=== PATIENT | female | born 1935 | race Caucasian/White ===

== ENCOUNTER 2018-03-22 11:15 | Observation (INO) ==
--- NOTE | 2018-03-22 10:00 | Anesthesia Evaluation PreOp ---
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 with most recent EF 55%), HTN, Hyperlipidemia, Pacemaker/ICD (interogated today) Pulmonary History: Former smoker CLIENT APPLICATION SUPPORT ENGINEER History: Other (Anxiety, Panic disorder) Anesthesia History: Past Anesthesia ( cholecystectomy, hip replacement, hysterectomy, knee replacement, pacemaker/AICD) : No Alcohol Use: rarely Drug use: none Medications and Allergies Acetaminophen [Tylenol] 325 mg PO Q6HR PRN 07/20/15 [History] Cetirizine HCl [Zyrtec] 10 mg PO PRN PRN 07/20/15 [History] Esomeprazole Magnesium [Nexium] 40 mg PO PRN PRN 07/20/15 [History] Estradiol [Estrace] 1 mg PO DAILY 07/20/15 [History] Furosemide [Lasix] 20 mg PO DAILY 07/20/15 [History] Losartan [Cozaar] 25 mg PO DAILY 07/20/15 [History] Metoprolol [Lopressor] 100 mg PO TID 07/20/15 [History] Nitroglycerin [Nitrostat] 0.4 mg SL PRN PRN 07/20/15 [History] Potassium Chloride 20 meq PO QID 07/20/15 [History] Ropinirole [Requip] 0.25 mg PO HS 07/20/15 [History] Sertraline HCl [Zoloft] 100 mg PO DAILY 07/20/15 [History] Warfarin [Coumadin] 5 mg PO 1800 #14 tablet 07/22/15 [Rx] 3 Allergy/AdvReac Type Severity Reaction Status Date / Time Procainamide Allergy See Verified 08/17/17 15:06 Comments Penicillins [PCN] AdvReac See Verified 08/17/17 15:06 Comments - Meds/Allergy Pre-op Review Medications Reviewed: Yes Allergies Reviewed: Yes Beta Blockers on Current Med List: Yes Anesthesia Results - Labs Laboratory Tests 01/03/18 02/12/18 02/28/18 05:17 05:52 14:41 WBC 4.8 Hgb 12.1 Hct 31.0 L Plt Count 122 L INR Sodium 139 Potassium Chloride 103 Carbon Dioxide 30 H BUN 21 Creatinine 1.28 H 02/28/18 03/19/18 14:41 06:20 WBC Hgb Hct Plt Count INR 1.2 Sodium Potassium 4.8 Chloride Carbon Dioxide BUN Creatinine - Imaging EKG: report reviewed (ELECTRONIC VENTRICULAR PACEMAKER ABNORMAL RHYTHM ECG) Anesthesia Assess/Plan ASA Score: 3 Modified Lex Scale for Level of Consciousness: Cooperative, oriented, and tranquil Anesthetic Plan: General Autologous Blood: Yes Monitoring Plan: Standard Monitors Recovery Plan: PACU
[~2018-03-22 11:15] MED LIST: ceFAZolin 1,000 MG, Sodium Chloride IRRigation 1,000 ML IR ONE
[2018-03-22] MEDS ORDERED: Clindamycin 900 MG/50 ML 900 MG/50 ML IV.SOLN IVPB ONE (11:58)
[2018-03-22] MEDS ORDERED: Lidocaine -MPF 2% 2 ML VIAL ONE (11:59)
[2018-03-22] MEDS ORDERED: *HR* Succinylcholine 200 MG/10 ML VIAL IVP ONE (11:59)
[2018-03-22] MEDS ORDERED: Ondansetron 4 MG/2 ML VIAL ONE (11:59)
[2018-03-22] MEDS ORDERED: *HR* FentaNYL (PF) 100 MCG/2 ML VIAL ONE (12:00)
[2018-03-22] MEDS ORDERED: Ringers Solution, Lactated 1,000 ML IVC SCH (12:00)
[2018-03-22] MEDS ORDERED: *HR* Propofol 200 MG/20 ML VIAL IVP ONE (12:00)
--- NOTE | 2018-03-22 12:26 | History & Physical Report ---
Date of Encounter: 03/22/18 Time of Encounter: 12:20 24 Hour HP Update - Instructions Instructions: If the History and Physical is less than 30 days old and was completed prior to A.M. admission and or procedure and has NOT been updated on calendar day of procedure please complete this update prior to performing procedure. - Update Patient reports changes in Medical Condition: No Changes in examination, assessment, or condition: No Changes in Medication: No Preop tests/diagnostics Reviewed: Yes Surgery Remains Indicated: Yes Consent for Planned Operative Procedure(s) Verified: Yes - Pre-Operative Checklist Preoperative Checklist Indicated: Yes Prophylactic Antibiotic Ordered: Yes Home Medications Include Beta Amari: Yes Beta Amari Taken Today (Day of Surgery): Yes Beta Amari Taken Yesterday (Day Prior to Surgery): Yes Is VTE Prophylaxis Indicated?: Yes
[2018-03-22] MEDS ORDERED: Dexamethasone 4 MG/ML VIAL ONE (13:12)
[2018-03-22] MEDS ORDERED: *HR* FentaNYL (PF) 100 MCG/2 ML VIAL IVP PRN (13:24)
[2018-03-22] MEDS ORDERED: *HR* Promethazine 25 MG/ML VIAL IVP PRN (13:24)
[2018-03-22] MEDS ORDERED: *HR* Rocuronium Bromide 50 MG/5 ML VIAL ONE (13:35)
[2018-03-22] MEDS ORDERED: Neostigmine Methylsulfate 3 MG/3 ML SYRINGE ONE (13:40)
[2018-03-22] MEDS ORDERED: *HR* Nalbuphine 20 MG/ML AMPUL ONE (13:50)
--- NOTE | 2018-03-22 14:04 | Operative Note ---
Date of procedure: 03/22/18 Pre-op diagnosis: Zenker's diverticulum Post-op diagnosis: same Procedure: #1 Zenker's diverticulectomy. #2 cricopharyngotomy Anesthesia: SHANIA Surgeon: Tone Andre Was there an mechanic assistant present: Yes Manager Budget: Nolvia Cortes Estimated blood loss (cc): 5 Specimen: Zenker's diverticulum Condition: stable Disposition: PACU Procedure in Detail: After informed consent the patients taking major operative suite placed in supine position given adequate general endotracheal anesthesia. The left neck is prepped and draped in sterile fashion utilizing ChloraPrep standard draping techniques. Timeout was taken. The patient is identified. I made a low anterior sternocleidomastoid incision in the left neck. I reflected the sternocleidomastoid posteriorly. The carotid and jugular vein were reflected posterior laterally. I isolated the omohyoid. The omohyoid was divided. I followed the carotid sheath down to the level of the anterior cervical fascia. I swept the larynx trachea and esophagus medially down to the anterior cervical fascia. The recurrent laryngeal nerve bundle was identified and protected. The nasogastric tube was passed directly into the esophagus under direct vision and palpation. I dissected the Zenker's diverticulum free. Holding this at right angles to the hypopharynx I identified the cricopharyngeus. I passed a right angle behind the cricopharyngeus and performed cricopharyngeal ottoman. This gave a good funnel shaped mucosa indicating an adequate cricopharyngeal ottoman. The laparoscopic vascular stapler was then used to amputate the Zenker 's diverticulum. The staple line was oriented transversely. His gave an excellent technical result with complete mucosal closure. The neck was irrigated with copious amounts of antibiotic containing solution and closed in multiple layers using interrupted 2-0 Vicryl and skin yaw. She tolerated the procedure well.
--- NOTE | 2018-03-22 14:43 | Anesthesia Evaluation Post Op ---
Date of Encounter: 03/22/18 Time of Encounter: 14:40 - Vital Signs Vital Signs: Vital Signs/O2 Sat/Glucose, Most Current Temp Pulse Resp BP Pulse Ox 03/22/18 14:39 98.3 F 70 14 150/81 99 03/22/18 14:29 98.3 F 70 12 140/85 98 03/22/18 14:19 70 14 152/90 100 03/22/18 14:09 69 14 139/84 98 03/22/18 13:59 98.1 F 72 12 141/93 100 03/22/18 11:37 98.0 F 80 18 104/67 98 - Lungs Lungs: Clear Ascult./Percussion - Airway Airway: Non-obstructed - Cardiovascular Regular Rate - Mental Status Mental Status: Alert & Oriented, Answers Appropriately - Pain Pain Scale: 0 - Nausea Vomiting Nausea Vomiting: Not Present - Hydration Hydration: Ice chips - Discharge PostOp Status: Transfer Patient to floor
[2018-03-22] MEDS ORDERED: OXYCODONE Oral CONC 10 MG/0.5 ML ORAL.SYG SL PRN (15:31)
[2018-03-22] MEDS ORDERED: Nitroglycerin 0.4 MG TAB.SUBL SL PRN (15:31)
[2018-03-22] MEDS ORDERED: Ondansetron 4 MG/2 ML VIAL IVP PRN (15:31)
[2018-03-22] MEDS ORDERED: *HR* OxyCODONE/APAP 5/325 TABLET PO PRN (15:31)
[2018-03-22] MEDS ORDERED: *HR* Metoprolol 5 MG/5 ML VIAL IVP PRN (15:31)
[2018-03-22] MEDS ORDERED: 0.9 % Sodium Chloride 1,000 ML IVC SCH (15:31)
[2018-03-22] MEDS ORDERED: Clindamycin 900 MG/50 ML 900 MG/50 ML IV.SOLN IVPB SCH (16:00)
[2018-03-22] MEDS: Clindamycin 900 MG/50 ML 900 MG/50 ML IV.SOLN IVPB SCH (20:24)
[2018-03-23] MEDS: Clindamycin 900 MG/50 ML 900 MG/50 ML IV.SOLN IVPB SCH (05:33)
[2018-03-23 06:47] VITALS: BP 99/65
--- NOTE | 2018-03-23 06:56 | General Surgery Progress Note ---
Date of Encounter: 03/23/18 Time of Encounter: 06:20 Subjective Narrative: Patient admits to sore throat but denies any significant pain. She denies any nausea or vomiting. Denies any fever overnight. Denies any chest pain or shortness of breath. Denies any bowel movement but admits to passing gas. Denies any abdominal pain. Objective Vital Signs - Last 8 Hours Temp Pulse Resp BP Pulse Ox 03/23/18 06:45 97.6 F 94 14 99/65 94 03/23/18 04:31 97.9 F 82 15 91/59 93 03/23/18 02:19 98.4 F 78 16 81/48 94 03/23/18 00:13 96/64 03/22/18 23:33 98.1 F 82 15 86/56 95 Intake and Output 03/22/18 03/22/18 03/23/18 15:59 23:59 07:59 Intake Total 1150 / 1150 320 / 320 Output Total 5 / 5 0 / 0 400 / 400 Balance -5 / -5 1150 / 1150 -80 / -80 Intake: IV Fluids 50 / 50 Cleocin Premix 900 MG/50 ML 900 50 / 50 mg In 50 ml @ 50 mls/hr IVPB Q8H [facility] Rx#:[id number] Oral 1100 / 1100 320 / 320 Output: Urine 0 / 0 400 / 400 Estimated Blood Loss 5 / 5 Other: Meal cLEARS Percent of Meal Consumed 100% # Voids 1 Weight 55.792 kg 55.8 kg Patient Weight 03/23/18 23:59 Weight 55.8 kg - VTE Documentation of Mechanical Device: Intermittent pneumatic compression device Consult Discharge Plan - Plan Referrals: Royer Madrigal [Primary Care Provider] -
[2018-03-23] MEDS ORDERED: Bumetanide 1 MG TABLET PO SCH (09:00)
[2018-03-23] MEDS ORDERED: Potassium Chloride Elixir 20 MEQ/15 ML UDC PO SCH (09:00)
--- NOTE | 2018-03-23 09:12 | Discharge Summary ---
<AriesRamesh - Last Filed: 03/23/18 13:21> Orders not resulted at time of discharge: Pending orders 03/22/18 13:45 Surgical Pathology [PTH] Routine Date of Encounter: 03/23/18 Time of Encounter: 06:15 - Discharge Diagnosis (1) Status post removal of Zenker's diverticulum Priority: Primary Status: Acute General Surgery Exam VITAL SIGNS: Reviewed. See [facility] GENERAL: No apparent distress. HEENT: [Normocephalic, PER, EOMi, oropharynx pink/moist, no JVD noted.] CV: b/l rad pulses 2+, RRR, no murmurs or gallops, no JVD RESPIRATORY: CTAB without wheezes, rales, or rhonchi ABD: soft, non-tender, no rebound/guarding/rigidity, no peritoneal signs. Normal bowel sounds present. INCISION: Incision on left side of neck is clean, dry, intact without purulence/ bleeding/edema/rubor/calor. EXTREMITY: grossly normal motor function, no pedal edema, peripheral pulses 2+ b /l NEUROLOGIC EXAM: AOx3, obeys commands, no speech deficits. PSYCHIATRIC: normal mood and affect SKIN: no gross lesions, rashes, or skin changes Initial Vital Signs Temp Pulse Resp BP Pulse Ox 98.0 F 80 18 104/67 98 03/22/18 11:37 03/22/18 11:37 03/22/18 11:37 03/22/18 11:37 03/22/18 11:37 - Hospital Course Hospital course: Ms. Bhandari is a 82 year old female with a past medical history of atrial fibrillation, cardiomyopathy, CO, pericarditis, hypertension, hiatal hernia with a past surgical history of hysterectomy, appendectomy,, cholecystectomy, cardiac pacemaker placement, and coronary stent placement that presented to clinic on 02/09/18 with complaints of dysphagia. Evaluation with upper GI barium study demonstrated a Zenker's diverticulum with significant hypertrophy of the upper septal esophageal sphincter and cricopharyngeus. Patient was subsequently scheduled for surgery on 03/22/18. Patient underwent a Zenker's diverticulectomy and a cricopharyngotomy. When seen today was able to speak clearly, indicating no damage to the recurrent laryngeal nerve. She admitted to some minor sore throat. She denies any nausea or vomiting. She denies any chest pain or shortness of breath. Denies any BM but admits to passing gas. Patient was able to tolerate the clear liquid diet and was transitioned to full liquid diet. She is to continue a full liquid diet for one week. Patient was warned that if she experienced any difficulty breathing, chest or neck pain, coughing up or vomiting blood, or fever to inform our clinic or report to the ER. Patient has a f/u appointment with Dr. Andre on 03/27/18. - Time Spent with Patient Total time spent providing and/or coordinating discharge services: Less than 30 minutes - Discharge Medications Home Medications: Bumetanide [Bumex] 1 mg PO DAILY 03/22/18 [History] Cholecalciferol (D-3) [Vitamin D] 5,000 unit PO DAILY 03/22/18 [History] Lactobacillus Acidophilus [Acidophilus Lactobacillus] 1 cap PO DAILY 03/22/18 [ History] Metoprolol [Lopressor] 25 mg PO BID 03/22/18 [History] Mirabegron [Myrbetriq] 50 mg PO DAILY 03/22/18 [History] Mirtazapine 7.5 mg PO HS 03/22/18 [History] Nitroglycerin [Nitrostat] 0.4 mg SL Q5M PRN 03/22/18 [History] Omeprazole [PriLOSEC] 40 mg PO DAILY 03/22/18 [History] Potassium Chloride Elixir [Potassium Chloride] 10 meq PO DAILY 03/22/18 [History ] Sertraline [Zoloft] 100 mg PO DAILY 03/22/18 [History] Warfarin Sodium 3 mg PO DAILY 03/22/18 [History] rOPINIRole [Requip] 0.25 mg PO HS 03/22/18 [History] Docusate [Colace] 100 mg PO BID #30 capsule 03/23/18 [Rx] Ibuprofen 800 mg PO Q8H PRN 14 Days #42 tablet 03/23/18 [Rx] OxyCODONE/APAP 5/325 [Percocet 5/325 MG] 1 each PO Q6HR PRN 7 Days #28 tablet [Rx] Allergies/Adverse Reactions: 3 Allergy/AdvReac Type Severity Reaction Status Date / Time oxybutynin Allergy Swelling Verified 03/22/18 12:52 of Lip/Tongue/Throat Penicillins [PCN] Allergy Rash Verified 03/22/18 12:52 Procainamide Allergy Difficulty Verified 03/22/18 12:52 Breathing Primary care physician: Royer Madrigal Discharging clinician: Ramesh Chris Anticipated date of discharge: 03/23/18 - Patient Status Disposition: Home, Self-Care Condition: Fair Functional capacity at discharge: independent ambulation Overall status at discharge: patient is progressing back to baseline - Discharge Instructions Instructions: Complete Blenderized Diet (DC) Follow Up With: Royer Madrigal [Primary Care Provider] - Additional Instructions: Full liquid diet for 1 week. A dressing is not needed after 48 hours. You may shower/bathe 24-48 hours after surgery. You will have tape over the incision which you can get wet. Incision care: o Once the tape falls off, apply polysporin ointment twice daily for 3 weeks. o The incision will be raised and red, but will eventually fade over the course of a year. o It is recommended that you use sunscreen on the incision if you are exposed to the sun o Vitamin E cream or oil can be used on the incision to facilitate healing Activity: Avoid strenuous activity such as heavy lifting, running or sports for 2 weeks as this may precipitate bleeding. If possible, have your head elevated when lying down. Call our office if you experience any of the following: Fever, higher than 38oC (101oF) o Increased drainage from the incision o Increased swelling in the neck Go to the Emergency Room if you experience the following o Increasing difficulties with bleeding o Severe neck pain Follow-up appointment with Dr. Andre on 03/27/18 at 1:15 pm. - Diet and Activity Diet: other (Full liquid diet for 1 week.) <Tone Andre - Last Filed: 03/23/18 15:03> Orders not resulted at time of discharge: Pending orders 03/22/18 13:45 Surgical Pathology [PTH] Routine Date of Encounter: 03/23/18 General Surgery Exam Initial Vital Signs Temp Pulse Resp BP Pulse Ox 98.0 F 80 18 104/67 98 03/22/18 11:37 03/22/18 11:37 03/22/18 11:37 03/22/18 11:37 03/22/18 11:37 - Hospital Course Hospital course: Ms. Bhandari is a 82 year old female - Time Spent with Patient Total time spent providing and/or coordinating discharge services: Date of admission: 03/23/18 11:53 Primary care physician: Royer Madrigal - Attending Attestation I examined this patient and my medical decision-making was reviewed with the Resident Physician. I agree with the documented findings, disposition and treatment plan as described except to the extent set forth below. The patient is seen and evaluated on morning rounds with the resident. Her voice quality is normal. There is no evidence of recurrent laryngeal nerve injury. Her swallowing is normal. She tolerated clear liquids. We will advance her to full liquid diet and discharged home Tone Andre MD FACS
== END 2018-03-23 11:53 | disposition home or self-care (01) ==
LOC: 3ANU 11:15 → SAMDAY 11:15 → 3ANU 15:28 → SAMDAY 03-23 11:52
PROVIDERS: ADMIT Surgery; ATTEND Surgery